=== PATIENT | male | born 1955 | race Caucasian/White ===

== ENCOUNTER 2023-09-17 14:32 | Outpatient (REF) | payer MEDICARE, MEDICAID, SELFPAY ==
--- NOTE | ~2023-09-17 | MR_ITS ---
EXAMINATION: MR BRAIN WITHOUT AND WITH CONTRAST CLINICAL INFORMATION: Meningioma. COMPARISON: None available. TECHNIQUE: MRI of the brain was obtained using routine sequences without and following the administration of 8.5 mL of Gadavist intravenous contrast. FINDINGS: Enhancing extra-axial mass along the right petrous apex, measuring up to 1.8 x 0.8 x 1.3 cm. Mild deformation of the right lateral aspect of the filomena. No demonstrated perilesional edema. Punctate focus of diffusion-weighted hyperintensity in the right centrum semiovale white matter with pseudonormalized values on the ADC map. No additional restricted diffusion. No evidence of acute or chronic hemorrhagic products on heme-sensitive imaging. Small chronic lacunar infarcts of the bilateral caudate heads and thalami. Scattered periventricular and deep white matter T2 FLAIR hyperintensities consistent with mild underlying microangiopathy. Proportional prominence of the ventricles and sulcal spaces without evidence of obstructive hydrocephalus. No additional abnormal mass effect. No midline shift. Normal appearance of the pituitary gland. Normal positioning of the cerebellar tonsils. Normal arterial and venous vascular flow voids are present. No additional abnormal contrast enhancement. Normal, homogeneous marrow signal. Mild mucosal thickening of the paranasal sinuses. No signal abnormalities within the mastoids. MR/MR head/brain wo/w con IMPRESSION: 1. There is a 1.8 cm extra-axial mass along the right petrous apex consistent with a meningioma. 2. Punctate focus of diffusion-weighted hyperintensity in the right centrum semiovale white matter suggestive of a tiny subacute white matter insult. 3. No additional acute intracranial abnormalities. No additional abnormal intracranial enhancement. 4. Mild underlying microangiopathy and generalized cerebral volume loss. Small chronic lacunar infarcts of the deep nuclei.
[2023-09-17] MEDS: gadobutroL 10 ML VIAL IVPUSH (16:27)
== END 2023-09-17 14:33 | disposition home or self-care (01) ==
LOC: HO.MRI 14:32
PROVIDERS: PCP Family Medicine; Visit Provider Registered Nurse
DX: D32.9 Benign neoplasm of meninges, unspecified (principal)
CPT/HCPCS: 70553; A9585